=== PATIENT | female | born 1945 ===

== ENCOUNTER 2017-01-05 14:44 | Emergency (ER) | payer MEDICAID, OTHER ==
[2017-01-05 14:57] VITALS: TEMP 97.7
[2017-01-05 15:10] VITALS: BMI 23.8
--- NOTE | 2017-01-05 15:12 | ED PDOC ---
Arrival/HPI - General Time Seen by Provider: 01/05/17 15:06 Historian: Patient, [employer] (Nurse Morgan) - History of Present Illness Narrative History of Present Illness (Text): 01/05/17 15:08 A 71 year old female presents to the emergency department complaining of shortness of breath for the past 4-5 days. History obtained through nurse Morgan who translated for patient. Patient reports she recently traveled back from [place] 1 week ago. She reports she had an LAD and circumflex stent placed while in . Patient denies any fever, chills, nausea, vomiting, abdominal pain, chest pain, palpitations, headache, dizziness, diaphoresis or any other complaints. Patient reports she is compliant with her medication. Time/Duration: Other (4-5 days) Symptom Course: Unchanged Quality: Other Context: Other Associated Symptoms (Text): 01/05/17 15:45 [employer] reports that approximately 2 weeks ago while at home in [facility] patient had a cardiac cath with 2 stents placed one in the LAD and 1 in circumflex. She came to the [facility] approximately one week ago. She has been taking her medications. She developed shortness of breath several days ago. No chest pain or palpitations. No dizziness or lightheadedness. No nausea or vomiting. No diaphoresis. She appears comfortable at this time. Past Medical History - Provider Review Nursing Documentation Reviewed: Yes Family/Social History - Physician Review Nursing Documentation Reviewed: Yes Family/Social History: No Known Family HX Smoking Status: Never Smoked Hx Alcohol Use: No Allergies/Home Meds Allergies/Adverse Reactions: Allergies No Known Allergies Allergy (Verified 01/05/17 15:10) Home Medications: Home Meds Medication Instructions Recorded Confirmed Cardiatone 25 mg PO DAILY 01/05/17 01/05/17 Carvedilol [Coreg] 6.25 mg PO Q12 01/05/17 01/05/17 Clopidogrel [Plavix] 75 mg PO DAILY 01/05/17 01/05/17 Furosemide [Lasix] 40 mg PO DAILY 01/05/17 01/05/17 Ramipril [Altace] 5 mg PO DAILY 01/05/17 01/05/17 Rosuvastatin Calcium [Crestor] 40 mg PO DAILY 01/05/17 01/05/17 Vastarel 35 mg PO Q12 01/05/17 Review of Systems - Physician Review All systems were reviewed & negative as marked: Yes - Review of Systems Constitutional: absent: Fevers, Night Sweats Respiratory: SOB. absent: Cough, Sputum, Wheezing Cardiovascular: absent: Chest Pain, Palpitations, Syncope Gastrointestinal: absent: Abdominal Pain, Nausea, Vomiting Neurological: absent: Headache, Dizziness, Focal Weakness Endocrine: absent: Diaphoresis Physical Exam Vital Signs Reviewed: Yes Vital Signs Temp Pulse Resp BP Pulse Ox 01/05/17 15:17 85 22 121/82 99 01/05/17 15:10 85 22 121/82 99 01/05/17 14:56 97.7 F 84 18 121/82 100 Temperature: Afebrile Blood Pressure: Normal Pulse: Regular Respiratory Rate: Normal Appearance: Positive for: Well-Appearing, Non-Toxic, Comfortable Pain Distress: None Mental Status: Positive for: Alert and Oriented X 3 - Systems Exam Head: Present: Atraumatic, Normocephalic Pupils: Present: PERRL Extroacular Muscles: Present: EOMI Conjunctiva: Present: Normal Mouth: Present: Moist Mucous Membranes Pharnyx: No: ERYTHEMA, EXUDATE, TONSILS ENLARGED Neck: Present: Normal Range of Motion Respiratory/Chest: Present: Clear to Auscultation, Good Air Exchange. No: Respiratory Distress, Accessory Muscle Use Cardiovascular: Present: Regular Rate and Rhythm, Normal S1, S2. No: Murmurs Abdomen: Present: Normal Bowel Sounds. No: Tenderness, Distention, Peritoneal Signs Back: Present: Normal Inspection Upper Extremity: Present: Normal Inspection. No: Cyanosis, Edema Lower Extremity: Present: Normal Inspection. No: Edema Neurological: Present: GCS=15, CN II-XII Intact, Speech Normal, Motor Func Grossly Intact Skin: Present: Warm, Dry, Normal Color. No: Rashes Psychiatric: Present: Alert, Oriented x 3, Normal Insight, Normal Concentration Medical Decision Making ED Course and Treatment: 01/05/17 15:08 Impression: A 71 year old female with shortness of breath. Patient denies chest pain or other complaints. Plan: -- Chest xray -- EKG -- Labs -- Reassess and disposition Progress Notes: 01/05/17 15:47 EKG shows normal sinus rhythm rate approximately [address] and T- wave changes and poor R waves and nonspecific intraventricular conduction with no old available for comparison Report Date : 01/05/2017 15:32:48 Procedure: Chest xray Dictator : Ace Patel MD IMPRESSION: No active disease. 01/05/17 17:00 patient's workup is negative. Her exam is unrevealing. She will be discharged to follow-up in the clinic. Follow-up in the ER as needed. - Lab Interpretations Lab Results: 01/05/17 15:30 01/05/17 15:30 Lab Results 01/05/17 15:30: WBC 6.4, RBC 4.45, Hgb 12.3, Hct 36.0, MCV 80.9, MCH 27.6, MCHC 34.2, RDW 13.2, Plt Count 164, MPV 10.1, Gran % 61.6, Lymph % (Auto) 30.8, [place] % (Auto) 5.5, Eos % (Auto) 1.9, Baso % (Auto) 0.2, Gran # 3.94, Lymph # 2.0, [place] # 0.4, Eos # 0.1, Baso # 0.01, PT 11.4, INR 1.06, APTT 25.4, D-Dimer, Quantitative 0.19, Sodium 141, Potassium 4.9, Chloride 98, Carbon Dioxide 29, Anion Gap 19, BUN 31 H, Creatinine 1.5 H, Est GFR ( Amer) 41, Est GFR ( Non-Af Amer) 34, Random Glucose 122 H, Calcium 10.2, Total Bilirubin 0.8, AST 29 , ALT 32, Alkaline Phosphatase 41, Lactate Dehydrogenase 252 L, Total Creatine Kinase < 20 L, Troponin I < 0.01, NT-Pro-B Natriuret Pep 96.9, Total Protein 8.7 H, Albumin 4.8, Globulin 3.9, Albumin/Globulin Ratio 1.2 I have reviewed the lab results: Yes - RAD Interpretation Radiology Orders: 01/05/17 15:15 CHEST PORTABLE [RAD] Stat chest one view shows no infiltrate or effusion or cardiomegaly Rad Technologist: ED Physician - Scribe Statement The provider has reviewed the documentation as recorded by the Milagrosibalisa Samayoa Provider Scribe Attestation: All medical record entries made by the Scribe were at my direction and personally dictated by me. I have reviewed the chart and agree that the record accurately reflects my personal performance of the history, physical exam, medical decision making, and the department course for this patient. I have also personally directed, reviewed, and agree with the discharge instructions and disposition. Disposition/Present on Arrival - Present on Arrival Any Indicators Present on Arrival: No History of DVT/PE: No History of Uncontrolled Diabetes: No Urinary Catheter: No History of Decub. Ulcer: No - Disposition Have Diagnosis and Disposition been Completed?: Yes Diagnosis: Dyspnea, Coronary artery disease Disposition: HOME/ ROUTINE Disposition Time: 17:01 Patient Plan: Discharge Condition: GOOD Discharge Instructions (ExitCare): Dyspnea (ED) Referrals: PCP,NO [Primary Care Provider] - Follow up with primary [facility] [place] [Outside] - Follow up with primary
--- NOTE | 2017-01-05 15:34 | RAD ---
HISTORY: sob COMPARISON: No prior. FINDINGS: LUNGS: No active pulmonary disease. PLEURA: No significant pleural effusion identified, no pneumothorax apparent. CARDIOVASCULAR: Normal. OSSEOUS STRUCTURES: No significant abnormalities. VISUALIZED UPPER ABDOMEN: Normal. OTHER FINDINGS: None. IMPRESSION: No active disease.
[2017-01-05 15:44] LABS: ADD MANUAL DIFF? NO
[2017-01-05 15:51] LABS: BASO # 0.01 K/mm3 (0.0-2.0); BASO % 0.2 % (0.0-3.0); EOS # 0.1 (0.0-0.7); EOS % 1.9 % (1.5-5.0); GRAN # 3.94 (1.4-6.5); GRAN % 61.6 % (50.0-68.0); LYMPH % 30.8 % (22.0-35.0); MEAN CELL VOLUME 80.9 fL (80.0-105.0); MEAN CORPUSCULAR HEMOGLOBIN 27.6 pg (25.0-35.0); MEAN CORPUSCULAR HGB CONC 34.2 g/dl (31.0-37.0); MEAN PLATELET VOLUME 10.1 fl (7.0-11.0); MONO # 0.4 (0.1-0.6); MONO % 5.5 % (1.0-6.0); PLATELET COUNT 164 10^3/uL (120.0-450.0); RED CELL DISTRIBUTION WIDTH 13.2 % (11.5-14.5); WHITE BLOOD COUNT 6.4 10^3/ul (4.5-11.0)
[2017-01-05 16:03] LABS: ALB/GLOB RATIO 1.2 (1.1-1.8); ALKALINE PHOSPHATASE 41 U/L (38-133); ALT/SGPT 32 U/L (7-56); AST/SGOT 29 U/L (15-39); BILIRUBIN,TOTAL 0.8 mg/dL (0.2-1.3); BLOOD UREA NITROGEN 31 mg/dL (7-21); CALCIUM 10.2 mg/dL (8.4-10.5); CARBON DIOXIDE 29 mmol/L (21-33); CHLORIDE 98 mmol/L (98-107); GFR AFRICAN-AMERICAN 41; GLUCOSE,RANDOM 122 mg/dL (70-110); POTASSIUM 4.9 mmol/L (3.6-5.0); SODIUM 141 mmol/L (132-148); TOTAL PROTEIN 8.7 g/dL (5.8-8.3)
[2017-01-05 16:15] LABS: TROPONIN I < 0.01 ng/mL
[2017-01-05 16:36] LABS: INR 1.06 (0.93-1.08); PARTIAL THROMBOPLASTIN TIME 25.4 Seconds (23.7-30.8)
[2017-01-05 16:44] LABS: D DIMER 0.19 mg/L FEU (0-0.50)
[2017-01-05 17:40] VITALS: BP 124/78; PULSE 84; RESP 20; O2SAT 98
--- NOTE | 2017-01-06 11:23 | CARD ---
APPROVED REPORT EKG Measurement Heart [id number] <Conclusion> Normal sinus rhythm Incomplete right bundle branch block Anterior infarct, age undetermined Abnormal ECG
== END 2017-01-05 17:42 | disposition home or self-care (01) ==
LOC: ED 14:44
DX: I25.10 Atherosclerotic heart disease of native coronary artery without angina pectoris (principal); R06.00 Dyspnea, unspecified